=== PATIENT | male | born 1970 | race Caucasian/White ===

== ENCOUNTER 2018-05-17 10:05 | Emergency (ER) | payer MEDICAID ==
[~2018-05-17] VITALS: Ht 175.3 cm; Wt 73.5 kg
[2018-05-17 10:12] VITALS: Ht 175.3 cm; Wt 73.5 kg
[2018-05-17 10:25] LABS: microscopic required? NO
[2018-05-17 10:35] LABS: urine erythrocyte NEGATIVE (NEGATIVE)
[2018-05-17 11:53] LABS: BASOPHIL % 1.3 % (0-2); PLATELET COUNT 213 x10^3mcL (130-400); RED CELL DISTRIBUTION WIDTH 13.6 % (11.5-14.5)
[2018-05-17 12:34] LABS: CALCIUM 8.5 mg/dL (8.5-10.1); CARBON DIOXIDE 26.9 mmol/L (21-32); CHLORIDE SERUM 108 mmol/L (98-107); CREATININE SERUM 0.9 mg/dL (0.7-1.3); GFR1 > 60 mL/min; GLUCOSE SERUM 95 mg/dL (74-106); SODIUM SERUM 144 mmol/L (136-145)
[2018-05-17 12:38] LABS: ALBUMIN 3.8 g/dL (3.4-5.0); ALKALINE PHOSPHATASE 57 U/L (46-116); ALT/SGPT 112 U/L (16-63); AST/SGOT 48 U/L (15-37); TOTAL PROTEIN, SERUM 7.5 g/dL (6.4-8.2)
[2018-05-17 13:18] VITALS: BP 148/109
== END 2018-05-17 13:18 | disposition home or self-care (01) ==
LOC: ED 10:05
PROVIDERS: Emergency Medicine
DX: M54.12 Radiculopathy, cervical region (principal); I10 Essential (primary) hypertension; E78.00 Pure hypercholesterolemia, unspecified
CPT/HCPCS: J2270; J2405; J7030